=== PATIENT | male | born 1970 | race Caucasian/White ===

== ENCOUNTER 2020-01-02 08:55 | Outpatient (REF) | payer OTHER, SELFPAY | END 2020-01-02 08:56 | disposition home or self-care (01) | LOC: HO.HMGCLDS 08:55 | PROVIDERS: Visit Provider Internal Medicine | DX: Z20.828 Contact with and (suspected) exposure to other viral communicable diseases (principal) | CPT/HCPCS: C9803; U0003 ==

== ENCOUNTER 2020-02-18 12:45 | Outpatient (REF) | payer OTHER, SELFPAY | END 2020-02-18 12:46 | disposition home or self-care (01) | LOC: HO.HMGCLDS 12:45 | PROVIDERS: Visit Provider Internal Medicine | DX: Z20.828 Contact with and (suspected) exposure to other viral communicable diseases (principal) | CPT/HCPCS: C9803; U0003 ==

== ENCOUNTER → 2020-08-05 09:12 | Outpatient (BNVA) | payer SELFPAY | PROVIDERS: Visit Provider Internal Medicine ==

== ENCOUNTER → 2022-09-02 09:08 | Outpatient (BNVA) | payer SELFPAY | PROVIDERS: Visit Provider Physician Assistant Medical | DX: Z02.79 Encounter for issue of other medical certificate (principal) ==

== ENCOUNTER 2024-07-05 13:11 | Outpatient (AMB) | payer OTHER, SELFPAY ==
--- NOTE | 2024-07-05 13:19 | AM.OFFWIN_ITS ---
Intake Vital Signs 07/05/24 14:05 Weight 200 lb BP 120/90 H Blood Pressure Location Rt brachial Position Sitting Pulse 89 Pulse Source Pulse Oximeter Pulse Oximetry (%) 97 Oxygen Delivery Method Room Air Intake Visit Reasons: EP-lt ear block & pain Intake Note: Patient here for left ear pain Patient Tobacco Use Status: Never used Tobacco Allergies No Known Allergies Allergy (Verified 07/05/24 14:08) HPI EP-lt ear block & pain HPI Details This is a 53-year-old male patient who presents to the walk-in clinic today with complaints of left ear itching/irritation. States that this has been an issue for him on/off for the last 2 years or so. States that he does have eczema, and feels that when he has an eczema flare, his ear tends to be affected as well. He has tried some peroxide drops at home without relief. Denies any fever/chills /recent illnesses. [facility] Social History Patient Tobacco Use Status: Never used Tobacco Review of Systems Const All systems reviewed & are unremarkable except as noted in HPI and below Physical Exam Const General: cooperative, healthy appearing, comfortable and no acute distress HEENT Head: Yes normal to inspection Ears: external ears normal, TM normal on the right, EAC's normal and unable to visualize TM on the left General nose exam: Normal external nose present Face and sinus: Yes normal facial exam Mouth: Normal oral and palatal mucosa present Resp Effort & Inspection: normal respiratory effort Skin General skin exam: no rashes or lesions noted Psych Appearance: grossly normal Mental Status: mental status grossly normal Speech and movement: Normal speech and movement present Office Procedures Cerumen Removal From which ear canal was the cerumen removed: left Removal: irrigation Notes: patient tolerated procedure well, no complications and ear canal clear [id number] Irrigation/Lavage Assessment & Plan Assessment & Plan (1) Left otitis media with effusion: Code(s): H65.92 - Unspecified nonsuppurative otitis media, left ear Plan: Irrigation of left ear performed with good effect. Large amount of wax removed, at which point I was able to visualize the TM, which was erythematous and had a purulent effusion. Patient would prefer drops to oral course of antibiotics. Discussed potential efficacy of this. Will start him on omar/poly/hc drops, which we reviewed use of. Advised to return to the clinic if he does not improve with treatment. Medications: New [id number]-[id number] 3.5-10,000-1 mg/mL-unit/mL-% 4 drps otic (ear) left Q8H 10 days 10 mL 0RF H65.92 - Unspecified nonsuppurative otitis media, left ear Coding Level of Care Code Est Pt Level 4 (75458) Diagnoses Left otitis media with effusion H65.92 CPT Codes Office Procedure - CPT: 52426-Tfe Irrigation/Lavage ([id number])
[2024-07-05 14:05] VITALS: BP 120/90; PULSE 89; O2SAT 97
== END 2024-07-05 14:48 | disposition home or self-care (01) ==
PROVIDERS: Visit Provider Nurse Practitioner Family
DX: H65.92 Unspecified nonsuppurative otitis media, left ear (principal)

== ENCOUNTER → 2024-07-05 13:11 | Outpatient (BNVA) | payer OTHER, SELFPAY | PROVIDERS: Visit Provider Nurse Practitioner Family | DX: H65.92 Unspecified nonsuppurative otitis media, left ear (principal) | CPT/HCPCS: 69209 ==